=== PATIENT | male | born 1955 | race Caucasian/White ===

== ENCOUNTER → 2017-06-08 | Outpatient (CLI) | payer MEDICAID ==
--- NOTE | 2017-06-08 10:36 | MRI ---
STUDY: MRI OF THE LUMBAR SPINE HISTORY: Low back pain that radiates down both legs. Comparison: None. Technique: Multiplanar multi-sequence MRI of the lumbar spine was performed. Sagittal T1, sagittal T 2, and STIR images, axial T1, and axial T2 images were obtained. Findings: Sagittal images: Vertebral body heights and alignment are within normal limits. Marrow signal is age-appropriate. Ther e is multilevel degenerative disc disease, most notable at L4/5 and L5/S1. The conus medullaris is normal in appearance terminating at the level of L1/2. Axial images: T12 -- L1: Normal. L1 -- L2: There is bilateral facet arthropathy and ligamentum flavum infolding. The central canal and neural foramina are adequate. L2 -- L3: There is a broad-based disc bulge, bilateral facet arthropathy and ligamentum flavum infold ing. The central canal and neural foramina are adequate. L3 -- L4: There is a broad-based disc bulge, bilateral facet arthropathy, and ligamentum flavum infol ding. This results in mild central canal stenosis. The neural foramina are adequate. L4 -- L5: There is a broad-based disc bulge, bilateral facet arthropathy and ligamentum flavum infold ing. The combination of these findings results in moderate central canal stenosis. There is moderate left and mild right neural foraminal stenosis. L5 -- S1: There is a broad-based disc bulge, bilateral facet arthropathy and ligamentum flavum infold ing. The central canal is adequate. There is mild left and moderate right neural foraminal stenosis. IMPRESSION: 1. Multilevel lumbar spondylosis, probably most notable at L4/5. 2. Moderate spinal stenosis at L4/5. 3. Mild spinal stenosis at L3/4. 4. Multilevel neural foraminal stenosis. Please see above for detail. Reported By:
--- NOTE | 2017-06-08 11:25 | MRI ---
STUDY: MRI OF THE CERVICAL SPINE HISTORY: Neck pain. Neck pain that cain and radiates down both arms. Comparison: Prior cervical spine MRI from April 26, 2013. Technique: An MRI of the cervical spine including sagittal T1, T2, and T2 STIR, axial T1, and T2 FSE images was performed using standard departmental protocol. Findings: Sagittal images: Visualized portions of the posterior fossa are within normal limits. The craniocervical junction is u nremarkable. Vertebral body heights and alignment are within normal limits. Marrow signal is age-appr opriate. There is no evidence for fracture or significant bone marrow edema. There is no significant prevertebral soft tissue swelling. The surrounding paraspinal soft tissues are unremarkable. There is no evidence of cord compression. There is some contouring of the ventral aspect of the spinal cord at the C3/4 level. No intrinsic signal abnormalities are identified in the spinal cord itself. Axial images: C2 -- C3: There is mild central disc osteophyte complex. The central canal and neural foramina are ad equate. C3 -- C4: There is a posterior disc osteophyte complex and bilateral uncovertebral osteophyte formati on. This results in mild contouring of the spinal cord at this level, and severe spinal stenosis. The re is mild bilateral neural foraminal stenosis. C4 -- C5: There is a shallow disc osteophyte complex and bilateral uncovertebral osteophyte formation . This results in mild central canal stenosis. There is mild right neural foraminal stenosis. Left ne ural foramen is adequate. C5 -- C6: Normal. C6 -- C7: Normal. C7 -- T1: Normal. IMPRESSION: 1. Multilevel cervical spondylosis, most notable at C3/4. 2. Severe spinal stenosis at C3/4. 3. Please see above for detail. Reported By:
== END | disposition home or self-care (01) | DRG 552 ==
LOC: RAD 08:12
PROVIDERS: ATTEND Psychiatry & Neurology Neurology
DX: M54.2 Cervicalgia (principal); M54.41 Lumbago with sciatica, right side; M47.892 Other spondylosis, cervical region; M47.896 Other spondylosis, lumbar region; M48.02 Spinal stenosis, cervical region; M48.061 Spinal stenosis, lumbar region without neurogenic claudication
CPT/HCPCS: 72141; 72148